=== PATIENT | female | born 1950 | race African-American/Black ===

== ENCOUNTER 2020-01-25 17:06 | Inpatient (IN) | payer MEDICARE, OTHER ==
[~2020-01-25] VITALS: Ht 162.6 cm; Wt 69.9 kg
[2020-01-25] MEDS ORDERED: SODIUM CHLORIDE 0.9% 1,000 ML IV ONE (17:44)
[2020-01-25 18:14] LABS: BASOPHILS % 0.5 % (0.0-2.0); EOSINOPHILS % 1.3 % (0.0-5.0); HEMATOCRIT. 41.7 % (36.0-48.0); HEMOGLOBIN. 13.6 g/dL (12.0-16.0); LYMPHOCYTES % 20.8 % (20.0-50.0); MEAN CORPUSCULAR VOLUME 92.2 fL (81.0-99.0); MONOCYTES % 4.1 % (2.0-8.0); NEUTROPHILS % 73.3 % (40.0-76.0); RED BLOOD CELL COUNT 4.52 mill/uL (4.2-5.4); RED CELL DISTRIBUTION WIDTH 15.8 % (11.6-14.6)
[2020-01-25 18:19] LABS: CHLORIDE 112 mEq/L (98-107)
[2020-01-25 18:32] LABS: MEAN PLATELET VOLUME 9.6 fl (7.4-10.4); PLATELET 175 x1000/uL (130-400); PLATELET ESTIMATE NORMAL
[2020-01-25 19:41] LABS: INR 0.9; PROTHROMBIN TIME 10.2 sec (9.6-11.0)
[2020-01-26] MEDS ORDERED: ONDANSETRON HCL 4MG/2ML INJ IV PRN (08:30)
[2020-01-26 09:32] LABS: LDL CHOLESTEROL 53 mg/dL (5-100)
[2020-01-26 09:33] LABS: HDL CHOLESTEROL 50 mg/dL (40-59)
[2020-01-26 10:30] VITALS: BP 133/66
[2020-01-26 13:30] VITALS: BP 138/44
[2020-01-26 16:00] VITALS: BP 142/43
[2020-01-26 20:00] VITALS: BP 136/47
[2020-01-26] MEDS: ACETAMINOPHEN 325MG TABLET PO PRN (20:37)
[2020-01-27] VITALS: BP 139/50
[2020-01-27 04:00] VITALS: BP 123/39
[2020-01-27 09:51] VITALS: BP 112/59
[2020-01-27] MEDS: CEFTRIAXONE 1 G PREMIX 50 ML IV SCH (14:32)
[2020-01-27] MEDS: ACETAMINOPHEN 325MG TABLET PO PRN (14:33)
[2020-01-27 17:04] VITALS: BP 110/41
[2020-01-27 20:00] VITALS: BP 161/59
[2020-01-27 20:53] LABS: CLARITY URINE TURBID (CLEAR); COLOR URINE YELLOW (YELLOW); KETONES URINE NEGATIVE (NEGATIVE); LEUKOCYTE ESTERASE URINE 2+ (NEGATIVE); NITRITE URINE NEGATIVE (NEGATIVE); OCCULT BLOOD URINE NEGATIVE (NEGATIVE); PH URINE >=9.0 (4.5-8.0); PROTEIN URINE TRACE (NEGATIVE); SPECIFIC GRAVITY URINE 1.022 (1.005-1.030)
[2020-01-27 21:25] LABS: *AMPHETAMINES SCREEN URINE NEGATIVE (NEGATIVE); *BARBITURATES SCREEN URINE NEGATIVE (NEGATIVE); CANNABINOID URINE SCREEN NEGATIVE (NEGATIVE); PHENCYCLIDINE URINE SCREEN NEGATIVE (NEGATIVE)
[2020-01-27 21:26] LABS: *BENZODIAZEPINES SCREEN URINE NEGATIVE (NEGATIVE); *COCAINE SCREEN URINE NEGATIVE (NEGATIVE); METHADONE URINE SCREEN NEGATIVE (NEGATIVE); OPIATES URINE SCREEN NEGATIVE (NEGATIVE)
[2020-01-28] VITALS: BP 138/59
[2020-01-28 04:00] VITALS: BP 138/75
[2020-01-28 08:00] VITALS: BP 160/48
[2020-01-28] MEDS ORDERED: LEVO500T2 MT (08:45)
[2020-01-28 12:00] VITALS: BP 125/42
[2020-01-28] MEDS: CEFTRIAXONE 1 G PREMIX 50 ML IV SCH (14:53)
[2020-01-28 16:00] VITALS: BP 129/64
[2020-01-28 16:34] VITALS: BP 122/41
== END 2020-01-28 18:20 | disposition home health service (06) | DRG 74 ==
LOC: ER 17:06 → 6WST 20:48 → EDBEDREQTM 20:50 → EDBEDREQ 20:50 → ENRESERV 01-26 08:17
PROVIDERS: ADMIT Internal Medicine; ATTEND Internal Medicine
DX: G90.8 Other disorders of autonomic nervous system (principal); I69.354 Hemiplegia and hemiparesis following cerebral infarction affecting left non-dominant side; E44.1 Mild protein-calorie malnutrition; J44.9 Chronic obstructive pulmonary disease, unspecified; I10 Essential (primary) hypertension; E87.8 Other disorders of electrolyte and fluid balance, not elsewhere classified; Z87.891 Personal history of nicotine dependence; Z68.26 Body mass index [BMI] 26.0-26.9, adult
CPT/HCPCS: 36415; 71045; 80053; 80061; 80305; 81003; 83036; 84443; 84484; 85025; 93005; 93306; 93880; 97162; 99285; J0696; J7030